=== PATIENT | male | born 1970 | race Caucasian/White ===

== ENCOUNTER 2023-04-26 15:24 | Emergency (ER) | payer MEDICAID ==
[~2023-04-26] VITALS: Ht 182.9 cm; Wt 83.9 kg
[2023-04-26 15:29] VITALS: BP 145/87; PULSE 104; RESP 24; TEMP 100.2
--- NOTE | 2023-04-26 15:33 | NUR ---
PATIENT BIBA TO BED 7.
[2023-04-26] MEDS ORDERED: KETOROLAC 30 MG/ML VIAL IM ONE (15:40)
--- NOTE | 2023-04-26 15:46 | NUR ---
Patient taken to [facility] for a shower. Patient was accompanied by DAIJA Singleton and DAIJA Mart.
--- NOTE | 2023-04-26 16:08 | NUR ---
[place] [employer] at bedside.
[2023-04-26] MEDS ORDERED: ALBUTEROL SULFATE/IPRATROPIU 3 ML SOL IH ONE (16:10)
[2023-04-26] MEDS ORDERED: LORazepam 1 MG TAB PO ONE (16:15)
[2023-04-26] MEDS ORDERED: ACETAMINOPHEN EXTRA STRENGTH 500 MG TAB PO ONE (16:15)
--- NOTE | 2023-04-26 16:30 | NUR ---
Patient is eraticly moving, stating back is burning. Ice cold towels applied and milk applied to patients back and chest.
--- NOTE | 2023-04-26 16:31 | NUR ---
Note sammy in EDM - 04/26/23 at 1648 by VILLA IV DISCONTINUED, PRESSURE APPLIED AND NO ACTIVE BLEEDING. Patient discharged with v/s stable. Written and verbal after care instructions given. Patient alert, oriented and verbalized understanding of instructions. Ambulatory with steady gait. All questions addressed prior to discharge. ID band removed. Patient advised to follow up with PMD. Rx of cEPHALEXIN, iBUPROFEN, AND TAMSULOSIN hcl given. Opportunity to ask questions provided and answered.
--- NOTE | 2023-04-26 16:33 | NUR ---
BREATHING TREATMENT ON HOLD PER DOCTOR.
[2023-04-26] MEDS ORDERED: diphenhydrAMINE 50 MG CAP PO ONE (16:40)
[2023-04-26] MEDS ORDERED: HALOPERIDOL IM 5 MG/ML VIAL IM ONE (16:50)
--- NOTE | 2023-04-26 17:21 | NUR ---
Patient ambulated to the restroom. Patient only had BM no urine output.
--- NOTE | 2023-04-26 17:32 | NUR ---
Patient is laying in bed, call light is within reach. Patient is calm and relaxed. All needs met by staff.
--- NOTE | 2023-04-26 17:42 | NUR ---
NO TREATMENT GIVEN DUE TO PT NOT WANTING IT. TALKED TO MD IN REGARDS TO PT. BREATHING TREATMENT. STATED NO TREATMENT NEEDED AT THIS TIME. PT IS IN NO DISTRESS, NO SOB. WILL CONTINUE TO MONITOR.
--- NOTE | 2023-04-26 18:00 | NUR ---
X-Ray at bedside.
--- NOTE | 2023-04-26 18:06 | NUR ---
Lab at bedside.
[2023-04-26 18:15] LABS: BASOPHILS % (AUTO) 0.3 % (0.0-2.0); EOSINOPHILS % (AUTO) 0.2 % (0.0-4.0); HEMATOCRIT 39.3 % (36-52); LYMPHOCYTES # (AUTO) 0.8 K/uL (2.0-11.5); LYMPHOCYTES % (AUTO) 6.2 % (20.5-51.1); MEAN CORPUSCULAR HEMOGLOBIN 31 pg (27-31); MEAN CORPUSCULAR HGB CONC 33 g/dL (33-37); MEAN CORPUSCULAR VOLUME 94.2 fL (80-94); MONOCYTES # (AUTO) 0.5 K/uL (0.8-1.0); MONOCYTES % (AUTO) 3.8 % (1.7-9.3); NEUTROPHILS # (AUTO) 11.4 K/uL (1.8-7.7); NEUTROPHILS % (AUTO) 89.5 % (42.2-75.2); PLATELET COUNT (AUTO) 323 K/uL (140-450); RED BLOOD CELL COUNT(AUTO) 4.18 MIL/uL (4.20-6.10); RED CELL DISTRIBUTION WIDTH 15.1 % (11.6-13.7); WHITE BLOOD COUNT (AUTO) 12.7 K/uL (4.8-10.8)
[2023-04-26 18:41] LABS: ALBUMIN 3.9 g/dL (3.4-5.0); ANION GAP 16.2 (8-16); ASPARTATE AMINOTRANSFERASE 95 U/L (15-37); CHLORIDE 105 mmol/L (98-107); GFR ARICAN-AMERICAN 101 mL/min (>90); GLUCOSE 112 mg/dL (74-106); POTASSIUM 3.2 mmol/L (3.5-5.1); SODIUM SERUM 143 mmol/L (136-145); TOTAL BILIRUBIN 0.6 mg/dL (0.0-1.0); UREA NITROGEN, BLOOD 26 mg/dL (7-18)
--- NOTE | 2023-04-26 19:17 | NUR ---
[place] [employer] at bedside.
--- NOTE | 2023-04-26 19:18 | NUR ---
Report given to KATIUSKA Valle and MICHAELLE Francois for transfer of care.
--- NOTE | 2023-04-26 19:22 | NUR ---
RECEIVED REPORT FROM KATIUSKA SORTO. PT LYING IN BED ASLEEP WITH NO S/S PAIN OR DISTRESS. ON BEDSIDE MONITOR. CALL LIGHT WITHIN REACH.
[2023-04-26 20:07] VITALS: O2SAT 97
--- NOTE | 2023-04-26 20:41 | NUR ---
PT AWAKE AND SHOWS MILD SIGNS OF DISTRESS. PT RESTLESS AND MOVING AROUND IN BED. ATTEMPTED TO COLLECT URINE BUT PT UNCOOPERATIVE. WILL CONTINUE ATTEMPTS TO RECEIVE URINE FROM PT.
--- NOTE | 2023-04-26 20:58 | NUR ---
URINE COLLECTED AND SENT TO LAB
[2023-04-26 21:01] LABS: APPEARANCE,URINE CLEAR (CLEAR); BILIRUBIN,URINE NEGATIVE (NEGATIVE); BLOOD, URINE TRACE-I (NEGATIVE); COLOR,URINE YELLOW (YELLOW); LEUKOCYTE ESTERASE ,URINE NEGATIVE (NEGATIVE); NITRITE, URINE NEGATIVE (NEGATIVE); UGLUCOSE NEGATIVE (NEGATIVE)
[2023-04-26 21:12] LABS: BARBITURATE, URINE NEGATIVE ng/ml (NEG <=200); BENZODIAZEPINE, URINE POSITIVE ng/mL (NEG <=200); CANNABINOID, URINE POSITIVE ng/mL (NEG <=50); COCAINE, URINE NEGATIVE ng/mL (NEG <=300); OPIATE, URINE NEGATIVE ng/mL (NEG <=2000); PHENCYCLIDINE SCREEN,URINE NEGATIVE ng/mL (NEG <=25)
[2023-04-26 22:29] VITALS: O2SAT 98
--- NOTE | 2023-04-26 23:26 | NUR ---
PT ASLEEP IN BED WITH NO S/S PAIN OR DISTRESS. ON BEDSIDE MATRIX DRIER TENDER AND VSS. CALL LIGHT WITHIN REACH.
[2023-04-27 00:31] VITALS: O2SAT 100
--- NOTE | 2023-04-27 01:24 | NUR ---
PT LYING IN BED WITH NO S/S PAIN OR DISTRESS. ON BEDSIDE BROADCAST TRAFFIC COORDINATOR WITH CALL LIGHT WITHIN REACH.
[2023-04-27 03:02] VITALS: O2SAT 100
--- NOTE | 2023-04-27 03:22 | NUR ---
PT ASLEEP IN BED WITH NO S/S PAIN OR DISTRESS. ON BEDSIDE RUBBER VULCANIZING MACHINE OPERATOR AND VSS. CALL LIGHT WITHIN REACH.
[2023-04-27 05:23] VITALS: BP 137/72; PULSE 43; RESP 17; O2SAT 100
--- NOTE | 2023-04-27 05:50 | NUR ---
Patient discharged with v/s stable. Written and verbal after care instructions given and explained. Patient verbalized understanding. Ambulatory with steady gait. All questions addressed prior to discharge. Advised to follow up with PMD.
== END 2023-04-27 05:50 | disposition home or self-care (01) ==
LOC: MED 15:24 → EDBD 15:24 → MED 04-27 05:50
DX: T26.82XA Corrosions of other specified parts of left eye and adnexa, initial encounter (principal); T26.81XA Corrosions of other specified parts of right eye and adnexa, initial encounter; T59.3X3A Toxic effect of lacrimogenic gas, assault, initial encounter; R45.1 Restlessness and agitation; Y93.89 Activity, other specified; Y92.89 Other specified places as the place of occurrence of the external cause; Y99.8 Other external cause status
CPT/HCPCS: 36415; 71045; 80053; 80305; 81001; 82550; 82553; 85025; 96372; 99285; J1630; J1885; Q0163